=== PATIENT | male | born 1990 | race Two or more races ===

== ENCOUNTER 2022-11-08 03:57 | Emergency (ER) | payer OTHER ==
[2022-11-08] MEDS ORDERED: Sodium Chloride 0.9% 1,000 ML IV ONE (04:26)
[2022-11-08] MEDS ORDERED: LORazepam 2 MG/ML SDV IM ONE (04:29)
[2022-11-08] MEDS ORDERED: Iopamidol 612 MG/ML 100 ML Bottle IVPUSH ONE (04:32)
[2022-11-08] MEDS ORDERED: Metoprolol Succinate 25 MG Tab.ER PO ONE (05:23)
[2022-11-08 05:59] LABS: BASOPHILS ABSOLUTE AUTO 0.04 K/mm3 (0.01-0.08); BASOPHILS PERCENT AUTO 0.3 % (0.1-1.2); EOSINOPHILS ABSOLUTE AUTO 0.02 K/mm3 (0.04-0.54); EOSINOPHILS PERCENT AUTO 0.1 (0.8-7.0); HEMATOCRIT 39.5 % (40.1-51.0); HEMOGLOBIN 13.5 gm/dl (13.7-17.5); IMMATURE GRAN ABSOLUTE AUTO 0.05 K/mm3 (0.00-0.10); IMMATURE GRAN PERCENT AUTO 0.3 % (<=1.0); LYMPHOCYTES ABSOLUTE AUTO 1.72 K/mm3 (1.32-3.57); LYMPHOCYTES PERCENT AUTO 11.3 % (21.8-53.1); MEAN CORPUSCULAR HEMOGLOBIN 33.8 pg (25.7-32.2); MEAN CORPUSCULAR HGB CONC 34.2 g/dl (32.2-35.5); MEAN CORPUSCULAR VOLUME 98.8 fl (79.0-92.2); MEAN PLATELET VOLUME 10.4 fl (9.4-12.3); MONOCYTES ABSOLUTE AUTO 1.34 K/mm3 (0.30-0.82); MONOCYTES PERCENT AUTO 8.8 % (5.3-12.2); NEUTROPHILS ABSOLUTE AUTO 12.08 K/mm3 (1.78-5.38); NEUTROPHILS PERCENT AUTO 79.2 % (34.0-67.9); PLATELET COUNT,PLT 350 K/mm3 (163-337); WHITE BLOOD CELL COUNT,WBC 15.25 K/mm3 (4.23-9.07)
[2022-11-08 06:15] LABS: INR 1.15; PROTHROMBIN TIME 12.2 SECONDS (9.7-12.0)
[2022-11-08 06:19] LABS: A/G RATIO 0.5 (1-2); ALBUMIN 2.7 g/dl (3.4-5.0); ANION GAP 15.5 (5-15); CALCIUM 8.2 mg/dL (8.5-10.1); CREATININE 0.6 mg/dL (0.7-1.3); EST CRCL DRUG DOSING (CG) 197.9 mL/min; ETHANOL BLOOD MEDICAL 0.34 gm% (0.00); POTASSIUM,K 3.5 mEq/L (3.5-5.1); PROTEIN TOTAL,TP 7.7 g/dl (6.4-8.2)
== END 2022-11-08 06:48 | disposition home or self-care (01) ==
LOC: JD.ED 03:57
DX: F10.10 Alcohol abuse, uncomplicated (principal); Y90.0 Blood alcohol level of less than 20 mg/100 ml
CPT/HCPCS: 36415; 74177; 80053; 80307; 83690; 85025; 85610; 93005; 96360; 96372; 99284; A9270; J2060; J7030; Q9967; 93010

== ENCOUNTER 2022-11-08 12:05 | Emergency (ER) | payer OTHER ==
[2022-11-08] MEDS ORDERED: Sodium Chloride 0.9% 10 ML Syringe FLUSH PRN (12:30)
[2022-11-08] MEDS ORDERED: Metoclopramide 10 MG/2 ML SDV IVPUSH ONE (12:32)
[2022-11-08] MEDS ORDERED: Sodium Chloride 0.9% 1,000 ML IV ONE ×2 (12:32→13:32)
[2022-11-08 12:56] LABS: BASOPHILS ABSOLUTE AUTO 0.07 K/mm3 (0.01-0.08); BASOPHILS PERCENT AUTO 0.5 % (0.1-1.2); EOSINOPHILS ABSOLUTE AUTO 0.02 K/mm3 (0.04-0.54); EOSINOPHILS PERCENT AUTO 0.1 (0.8-7.0); HEMATOCRIT 37.8 % (40.1-51.0); HEMOGLOBIN 12.9 gm/dl (13.7-17.5); IMMATURE GRAN ABSOLUTE AUTO 0.03 K/mm3 (0.00-0.10); IMMATURE GRAN PERCENT AUTO 0.2 % (<=1.0); LYMPHOCYTES ABSOLUTE AUTO 1.91 K/mm3 (1.32-3.57); LYMPHOCYTES PERCENT AUTO 12.7 % (21.8-53.1); MEAN CORPUSCULAR HEMOGLOBIN 33.7 pg (25.7-32.2); MEAN CORPUSCULAR HGB CONC 34.1 g/dl (32.2-35.5); MEAN CORPUSCULAR VOLUME 98.7 fl (79.0-92.2); MONOCYTES ABSOLUTE AUTO 1.36 K/mm3 (0.30-0.82); NEUTROPHILS ABSOLUTE AUTO 11.65 K/mm3 (1.78-5.38); NEUTROPHILS PERCENT AUTO 77.5 % (34.0-67.9); PLATELET COUNT,PLT 305 K/mm3 (163-337); RED BLOOD CELL COUNT 3.83 M/mm3 (4.63-6.08); WHITE BLOOD CELL COUNT,WBC 15.04 K/mm3 (4.23-9.07)
[2022-11-08 13:13] LABS: INR 1.18; PROTHROMBIN TIME 12.5 SECONDS (9.7-12.0)
[2022-11-08 13:20] LABS: A/G RATIO 0.5 (1-2); ALBUMIN 2.7 g/dl (3.4-5.0); ANION GAP 13.6 (5-15); BILIRUBIN TOTAL 6.3 mg/dL (0.2-1.0); BUN/CREATININE RATIO 8.3 (14-18); CREATININE 0.6 mg/dL (0.7-1.3); EST CRCL DRUG DOSING (CG) 203.6 mL/min; ETHANOL BLOOD MEDICAL 0.41 gm% (0.00); POTASSIUM,K 3.6 mEq/L (3.5-5.1); PROTEIN TOTAL,TP 7.8 g/dl (6.4-8.2)
== END 2022-11-08 17:50 | disposition home or self-care (01) ==
LOC: JD.ED 12:05
DX: F10.920 Alcohol use, unspecified with intoxication, uncomplicated (principal); I10 Essential (primary) hypertension; Z86.16 Personal history of COVID-19
CPT/HCPCS: 36415; 80053; 80307; 83690; 85025; 85610; 86140; 96361; 96374; 99284; J2765; J3490; J7030; 99283